=== PATIENT | female | born 1945 | race Caucasian/White ===

== ENCOUNTER 2018-01-20 05:48 | Day surgery (SDC) | payer MEDICARE, OTHER ==
[2018-01-20] MEDS ORDERED: fentaNYL 100 MCG/2 ML SDV IV ONE ×3 (05:49→06:59)
[2018-01-20] MEDS ORDERED: Midazolam 1 MG/ML 2 ML SDV IV ONE ×6 (05:49→07:12)
[2018-01-20] MEDS ORDERED: Sodium Chloride 0.9% 10 ML Syringe FLUSH PRN (06:00)
[2018-01-20] MEDS ORDERED: Dextrose 5%-0.45% NaCl 1,000 ML IV SCH (06:00)
[2018-01-20] MEDS ORDERED: fentaNYL 100 MCG/2 ML SDV ONE (06:02)
[2018-01-20] MEDS ORDERED: Midazolam 1 MG/ML 2 ML SDV ONE (06:02)
--- NOTE | 2018-01-20 11:33 | OR ---
DATE: 01/20/2018 PROCEDURE: Total colonoscopy. INSTRUMENT USED: CF-H180 AL Olympus video colonoscope. PREMEDICATIONS: Fentanyl 100 mcg intravenous, Versed 2 mg intravenous. Nasal O2 cannula. The procedure was done under pulse oximetry, BP recording, and potline monitor. INDICATIONS: Screening colonoscopic examination is done for detection of any polypoid lesions and removal. Endoscopic hemostasis therapy if needed. DESCRIPTION OF PROCEDURE: Initial rectal exam was unremarkable. Rigid anoscopy showed 3-mm sized benign-appearing polyp, removed by pinch biopsy forceps application. The colonoscope was passed with ease. Scattered diverticula were noted in the distal left colon along with deformity. The scope was passed with ease up to the ileocecal area. Photographs were taken of the normal-appearing cecum identified by landmarks of appendiceal orifice and double-bulged ileocecal folds. No bleeding was noted from any of the visualized areas at the commencement of the examination. No stricture. No vascular ectasia. No large isolated ulcerations seen. No evidence of diffuse inflammatory bowel disease in the form of friability, contact bleeding, or ulcerations. Probing the proximal sides of folds and flexures, using adequate distention and clearing of the stool material, withdrawal of the scope was made. [id number] time over 6 minutes. The bowel preparation was found to be adequate. No bleeding was noted from any of the visualized areas at the completion of examination. IMPRESSION: 1. Diminutive rectal polyp. 2. Diverticulosis. The patient tolerated the procedure well. [facility] /[id number]
== END 2018-01-20 09:26 | disposition home or self-care (01) ==
LOC: DL.ENDO 05:48
PROVIDERS: ATTEND Internal Medicine Gastroenterology
DX: Z12.11 Encounter for screening for malignant neoplasm of colon (principal); K62.1 Rectal polyp; K57.30 Diverticulosis of large intestine without perforation or abscess without bleeding
CPT/HCPCS: 88305; J2250; J3010; J7042